=== PATIENT | female | born 1970 | race Caucasian/White ===

== ENCOUNTER 2024-10-22 14:42 | Inpatient (IN) | payer BC, SELFPAY ==
[2024-10-22] VITALS (28 sets, daily range): BP systolic 105–137; BP diastolic 70–101; BMI 30.3; BMI 29.2
--- NOTE | 2024-10-22 14:06 | CON.NEURO ---
Neuro Assessment/Plan
Assessment
Head CT imgs rev'd, no bleed
CTA head/neck imgs rev'd, normal
stroke, NIHSS 3 treated with TNK
Plan
Admit to MICU for 24 hours of frequent neurochecks.�
neurochecks q1, Frequent vital signs Q15min x 2hrs, then Q30min x 6hrs, then Q1H x 16hrs until stable from the start of TNK.�
�tele, accuchecks/ISS. Repeat Head CT in 24 hours
Blood pressure goals: <180/105 and MAP 80-100� in the acute period.� If BP elevated for 2 readings, preferred agents include IV labetalol or nicardipine.� Vasopressors as necessary to maintain MAP and CPP.�
Glucose goals: Maintain euglycemia using sliding scale insulin. If glucose >180 for two consecutive readings, please use MICU insulin protocol.�
Temperature goals: maintain normothermia�
Diagnostic tests: MRI brain without contrast, ECHO with bubble.�
Consults: PT/OT/FRUIT PEELER/PMR/CM/SW/bariatric coordinator
Avoid: antiplatelets, antithrombolytics, and puncture of non-compressible sites x24 hours if possible,
Consultation
Order
Date of Consultation: 10/22/24
Requesting Provider: Olvin Rueda
Reason for Consult: Stroke Alert
Subjective/Objective
Subjective Data
Date of Service: October 22, 2024
From ED notes:
Patient is a 54-year-old woman with history of migraines, postconcussive syndrome, hypothyroidism presenting to the emergency department with vision changes and numbness tingling. She was made a stroke alert on arrival. Patient's last known normal
was 12 PM. She was stating that she was sitting working. She then lost vision from her right side of her right eye. She then developed numbness tingling to her right arm and right leg. She did have balance problems. She also felt as if her
mouth went numb. She denies any migraine. No hearing changes. No trauma. Nothing stressful occurred prior to the symptoms.
patient reports having had similar symptoms previously after a concussion, which resolved after a few days
Objective Data
Vital Signs
Temp Pulse Resp BP Pulse Ox
36.7 C 86 16 136/88 98
10/22/24 13:46 10/22/24 13:46 10/22/24 13:46 10/22/24 13:46 10/22/24 13:46
Patient Allergies
Pork/Porcine Containing Products Allergy (Verified 10/22/24 13:48)
digestive problems
CVA Assessment
Onset of Stroke Symptoms
Onset of symptoms known: Yes
Date of onset of symptoms: 10/22/24
Time of onset of symptoms: 12:00
NIH Stroke Score
Level of Consciousness: 0 - Alert
LOC Questions: 0-Answers both correctly
LOC Commands: 0-Performs both correctly
Best Horizontal Gaze: 0-Normal
Visual Haji: 2=Full hemianopia
Facial Palsy: 0=Normal, symmetrical
Motor - Right Arm: 0=No drift 10 seconds
Motor - Left Arm: 0=No drift 10 seconds
Motor - Right Le-No drift 5 seconds
Motor - Left Le-No drift 5 seconds
Limb Ataxia: 0-Absent
Sensation: 1-Mild loss
Best Language: 0-No aphasia
Dysarthria: 0-Normal
Extinction and Inattention: 0-No abnormality
Total Score:: 3
Physical Exam
-
AAOx3, speech clear, language intact
VF: right eye with right hemianopsia; left eye intact
face symmetric
full strength b/l UE/LE, right pronator drift
decreased pin RUE/RLE
Medications
-
Home Medications
�Medication �Instructions �Recorded
Calcium Citrate 1 tab PO DAILY 05/18/20
cholecalciferol (vitamin D3) 25 1,000 units PO DAILY 05/18/20
mcg (1,000 unit) tablet
coenzyme Q10 200 mg capsule 600 mg PO DAILY 05/18/20
cyanocobalamin (vitamin B-12) 1,000 mcg PO DAILY 05/18/20
1,000 mcg tablet
duloxetine 60 mg capsule,delayed 120 mg PO DAILY 05/18/20
release
feverfew 380 mg capsule 380 mg PO DAILY 05/18/20
hydrochlorothiazide 12.5 mg tablet 37.5 mg PO DAILY 05/18/20
magnesium 200 mg tablet 400 mg PO DAILY 05/18/20
therapeutic multivitamin 1 tab PO DAILY 05/18/20
levothyroxine 112 mcg tablet 112 mcg PO DAILY 10/22/24
(Synthroid)
--- NOTE | 2024-10-22 14:07 | ED.CVA ---
History of Present Illness
General
Chief Complaint: CVA/TIA Symptoms
Time Seen by Provider: 10/22/24 14:00
Onset of Stroke Symptoms
Onset of symptoms known: Yes
Date of onset of symptoms: 10/22/24
Time of onset of symptoms: 12:00
History of Present Illness
History of Present Illness:
Patient is a 54-year-old woman with history of migraines, postconcussive syndrome, hypothyroidism presenting to the emergency department with vision changes and numbness tingling. She was made a stroke alert on arrival. Patient's last known normal
was 12 PM. She was stating that she was sitting working. She then lost vision from her right side of her right eye. She then developed numbness tingling to her right arm and right leg. She did have balance problems. She also felt as if her
mouth went numb. She denies any migraine. No hearing changes. No trauma. Nothing stressful occurred prior to the symptoms.
Past History
Past History
ED Past Medical History: Hypothyroidism
Social History
Tobacco: Non-smoker
Alcohol: None
Phy Exam
Physical Exam
Physical Exam:
GENERAL: in no acute distress
HEENT: normocephalic, extraocular movements intact, moist oral mucosa
NECK: normal inspection
RESPIRATORY: no respiratory distress, clear to auscultation bilaterally
CARDIOVASCULAR: regular rate and rhythm
ABDOMEN/: soft, non-distended, non-tender to palpation, no rebound or guarding
EXTREMITIES: non-tender, no edema/swelling
NEUROLOGIC: NIH 3: right side with right-sided visual field cut, decrease sensation to the right arm/right leg, right upper extremity strength 5/5, left upper extremity strength 5/5, right lower extremity strength 5/5, left lower extremity strength
5/5, normal sensation to light touch, normal [id number] and [id number], gait not tested formally
Scores
NIH Stroke Score
Level of Consciousness: 0 - Alert
LOC Questions: 0-Answers both correctly
LOC Commands: 0-Performs both correctly
Best Horizontal Gaze: 0-Normal
Visual Haji: 2=Full hemianopia
Facial Palsy: 0=Normal, symmetrical
Motor - Right Arm: 0=No drift 10 seconds
Motor - Left Arm: 0=No drift 10 seconds
Motor - Right Le-No drift 5 seconds
Motor - Left Le-No drift 5 seconds
Limb Ataxia: 0-Absent
Sensation: 1-Mild loss
Best Language: 0-No aphasia
Dysarthria: 0-Normal
Extinction and Inattention: 0-No abnormality
Total Score:: 3
Course
Orders/Labs/Results
Orders:
Orders
10/22/24 13:57
Electrocardiogram (*1) Urgent
Reason for Study: Other
Other Reason for Exam: Possible Stroke
CT HEAD STROKE ALERT W/o Cont Urgent
Comment:
Reason For Exam: stroke alert
Bedside Glucose- Treatment ONCE
Cardiac Monitoring- Treatment ONCE
EKG- Treatment ONCE
IV Insert/Care/Rem.- Treatment PRN
Complete Blood Count/With Diff Urgent
Comprehensive Metabolic Panel Urgent
PTT Urgent
Prothrombin Time Urgent
Troponin I Urgent
Vital Signs As Directed
Frequency: Other
Weight As Directed
Frequency: Once
Comment: ZERO STRETCHER SCALE FOR ACCURATE WEIGHT
O2 Therapy [RESP] Urgent
Titrate/Wean O2 to maintain O2 sat greater than (%): 93
Special Instructions: MAINTAIN CONTINUOUS O2 SATS > OR = 93%
10/22/24 13:58
CT HEAD/NECK ANG STROKE ALERT Urgent
Comment:
Reason For Exam: right peripheral loss and right sided weakness
10/22/24 14:08
Tenecteplase [Tnkase] 21 mg Syringe [Syringe Non-Pump] 0 ml IV NOW
Provider explained risk/benefits to patient &/or caregiver?: Yes
Blood pressure: 136/88
Vital Signs
Initial and Last Documented VS:
Initial Vital Signs
Temp Pulse Resp BP Pulse Ox
98.0 F 86 16 136/88 98
10/22/24 13:46 10/22/24 13:46 10/22/24 13:46 10/22/24 13:46 10/22/24 13:46
Last Documented Vital Signs
Temp Pulse Resp BP Pulse Ox
98.0 F 86 16 136/88 98
10/22/24 13:46 10/22/24 13:46 10/22/24 13:46 10/22/24 13:46 10/22/24 13:46
MDM/Problems Addressed
Differential Diagnosis Includes:
Patient is a 54-year-old woman presenting to the emergency department as a stroke alert. Vitals unremarkable exam does show right eye with right sided visual field cuts, decree sensation to the right arm. NIH of 3. Concern for acute CVA. Patient
was immediately taken over to CT scan for CT head and angio. CT scan of the head per my interpretation with no obvious hemorrhage or large occlusion. Received message from radiology with no acute findings. Discussed with neurology. Will proceed
with FRANCHESCA Bermudez. They did consent her. Patient will need ICU admission.
*Critical Care Note
Total Time (30-74mins, 75-104mins- exclusive of procedures): 31
comment:
Critical care statement: A total of 31 minutes of critical care time was provided for this patient. This includes management of unstable vital signs, evaluation of the patient at bedside, reviewing the patient's pertinent medical records, ordering
and reviewing studies, arranging urgent treatment with development of a management plan, evaluating patient's response to treatment, frequent reassessment, and discussion with consultants. This time was separate from time utilized to perform the
aforementioned documented procedures.
ED Attending Note
-
Portions of this chart may have been created with voice recognition software.� Occasional wrong word or��sound alike� substitutions may have occurred due to the inherent limitations of voice recognition software.
Discharge Plan
Departure
Patient Disposition: Admit
Date of Disposition: 10/22/24
Time of Disposition: 14:17
Presentation/result/management discussed w/ accepting MD/DO: Hospitalist
Discharge Problem:
Stroke
Prescriptions:
No Action
duloxetine 60 MG capsule,delayed release(DR/EC)
120 mg PO DAILY
hydrochlorothiazide 12.5 MG tablet
37.5 mg PO DAILY
cyanocobalamin (vitamin B-12) 1,000 mcg Tablet
1,000 mcg PO DAILY
Theragen Tablet
1 tab PO DAILY
feverfew 380 MG capsule
380 mg PO DAILY
magnesium 200 MG tablet
400 mg PO DAILY
coenzyme Q10 200 MG capsule
600 mg PO DAILY
calcium citrate 250 mg calcium Tablet
250 mg PO DAILY
cholecalciferol (vitamin D3) 1,000 UNITS tablet
1,000 units PO DAILY
levothyroxine [Synthroid] 112 mcg Tablet
112 mcg PO DAILY
Interventions
Interventions:
*Risk Screen - Suicide Last Done: 10/22/24 13:46
*General Assessment Last Done: 10/22/24 14:06
*Neglect/Abuse Screening Last Done: 10/22/24 13:46
*ED- Fall Risk Assessment Last Done: 10/22/24 14:06
*ED COVID-19 Vaccine History Last Done: 10/22/24 14:06
ED- Pulmonary Assessment Last Done: 10/22/24 13:55
ED- Neurological Assessment Last Done: 10/22/24 13:59
ED- Cardiac Assessment Last Done: 10/22/24 14:06
Discharge Date and Time
Print Language: IRAQI
[2024-10-22] MEDS: TNKASE 4.2 MG IV (14:17)
--- NOTE | 2024-10-22 14:20 | HPS.HSE ---
Addendum entered and electronically signed by Betsey Murphy MD 10/22/24 15:10:
pt seen and examined independently--agree with C[employer] TESTER note
GENERAL: well developed, well nourished, female in no apparent distress
HEENT: NC/AT
HEART: regular rate and rhythm, +S1, +S2
LUNGS : clear to auscultation bilaterally
ABDOM: soft, nontender, nondistended, + bowel sounds
EXT: no cyanosis, clubbing, or edema
NEUROLOGIC: grossly intact--CN 2-12 intact, sensation intact--strength 5/5 x 4 ext
Acute CVA--Sudden onset right-sided visual deficits and right arm and leg numbness --s/p TNK--admit to ICU--head CT and CTA without acute issues, EKG NSR--head of research & insights/neuro consult--will need ECHO, brain MRI, PT/OT/speech--permissive HTN--hold
HCTZ--check lipids
hypokalemia likely from HCTZ--replete
transaminitis likely from Cymbalta--trend LFT--consider abdominal US if no resolution
depression-duloxetine continued
calcium wasting syndrome--hold HCTZ for now--cont calcium and vit D supps
Hypothyroidism--levothyroxine continued
DVT Prophylaxis--scd
CODE status--full code
Original Note:
Family Physician
-
Family Physician:
Chief Complaint
-
right sided weakness
History of Present Illness
54-year-old woman with history of migraines, postconcussive syndrome, hypothyroidism presenting to the emergency department with vision changes and numbness tingling and weakness of right side. she was from working from home on the computer. She
then lost vision from her right side of her right eye. She then developed numbness tingling to her right arm and right leg. she was able to come downstairs but She did have balance problems. she is complaining of head pressure. denied fever,
chills, congestion, cough. denied chest pain, sob. denied abdominal pain,n,v,d.denied dysuria or hematuria.
CT with no acute findings. admitting for further management. patient received TNK in ER.
Medical History
Past Medical History
Past Medical History: Reports Other
Additional Past Medical History:
Postconcussive syndrome
Hypothyroidism
Past Surgical History: Reports Other
Additional Past Surgical History:
Lap cholecystectomy and umbilical hernia repair
Social History
Tobacco: Non-smoker
Alcohol: None
Drug: None
Personal:
Living: With Family
Employment: Employed
Family History
Family History: Not pertinent
Allergies / Home Medications
Allergies reflects when Allergies were last updated in [facility].
Home Medications with original date entered in [facility]
Allergy/Medication List:
Allergies
Allergy/AdvReac Type Severity Reaction Status Date / Time
Pork/Porcine Containing Allergy digestive Verified 10/22/24 13:48
Products problems
Home Medications
calcium citrate 250 mg PO DAILY 05/18/20
cholecalciferol (vitamin D3) 25 mcg (1,000 unit) tablet 1,000 units PO DAILY 05/18/20
coenzyme Q10 200 mg capsule 600 mg PO DAILY 05/18/20
cyanocobalamin (vitamin B-12) 1,000 mcg tablet 1,000 mcg PO DAILY 05/18/20
duloxetine 60 mg capsule,delayed release 120 mg PO DAILY 05/18/20
feverfew 380 mg capsule 380 mg PO DAILY 05/18/20
hydrochlorothiazide 12.5 mg tablet 37.5 mg PO DAILY 05/18/20
magnesium 200 mg tablet 400 mg PO DAILY 05/18/20
therapeutic multivitamin 1 tab PO DAILY 05/18/20
levothyroxine 112 mcg tablet (Synthroid) 112 mcg PO DAILY 10/22/24
Review of Systems
-
Constitutional: Reports No Symptoms
EENT: Reports No Symptoms
Respiratory: Reports No Symptoms
Cardiac: Reports No Symptoms
Abdomen/GI: Reports No Symptoms
: Reports No Symptoms
Musculoskeletal: Reports No Symptoms
Skin: Reports No Symptoms
Neurological: Reports Headache, Weakness and Numbness
Endocrine: Reports No Symptoms
Hematologic/Lymphatic: Reports No Symptoms
Psych: Reports No Symptoms
Physical Exam
Vital Signs
Vital Signs
Temp Pulse Resp BP Pulse Ox
98.0 F 86 16 136/88 98
10/22/24 13:46 10/22/24 13:46 10/22/24 13:46 10/22/24 13:46 10/22/24 13:46
Physical Exam
General: Well Developed, Well Nourished and No Apparent Distress
HEENT: NormoCephalic, Moist mucous membranes and Atraumatic
Respiratory: Clear
Cardiac: S1/S2 and Regular Rhythm; No Murmur or Rub
GI: Soft, Non Tender, Non Distended and Normal Bowel Sounds; No Organomegaly
Rectal: Deferred by Provider
Musculoskeletal: No Clubbing, No Cyanosis and No Edema
Skin: No Rash
Neuro: Nonfocal/grossly intact and Other (decreased sensation to right side, right sided weakness. )
Data Reviewed
-
CT Scan: Report Reviewed by me
Lab Data: Labs Reviewed by me
Impression/Plan
-
#Sudden onset right-sided visual deficits and right arm and leg numbness Rule out acute CVA post TNK
-Head CT without acute findings
-EKG with normal sinus rhythm
-Head and neck CT pending
-head MRI
-obtain a1c, lipid profile
-PT/OT
-neurology consulted
#hypokalemia likely from HCTZ
-k dur in ER
-bmp in am
#transaminitis likely from Cymbalta
-trend LFT
-denied abdominal pain
-ctm
#depression
-duloxetine continued
#HTN
-hold HCTZ, allow permissive HTn
#Hypothyroidism
-levothyroxine continued
#DVT Prophylaxis
-scd
#CODE status
-full code
[2024-10-22 14:23] LABS: % Basophils 1.4 % (0-2); % Immature Granulocytes 0.1 % (0-0.5); % Lymphocytes 21.3 % (20.5-51.1); % Monocytes 7.4 % (1.7-9.3); % Neutrophils 64.8 % (42.2-75.2); Absolute Basophils 0.1 10^3/uL (0-0.2); Absolute Eosinophils 0.4 10^3/uL (0-0.7); Absolute Lymphocytes 1.8 10^3/uL (1.2-3.4); Absolute Monocytes 0.6 10^3/uL (0.1-0.6); Absolute Neutrophils 5.6 10^3/uL (1.4-6.5); Hemoglobin 15.8 g/dL (12.0-16.0); Mean Corp Hgb Conc. 35.9 g/dL (33.0-37.0); Mean Corpuscular Hgb 31.5 pg (27.0-31.0); Mean Corpuscular Volume 87.6 fL (81.0-99.0); Mean Platelet Volume 8.9 fL (7.4-10.4); Nucleated Red Blood Cells % 0 %; Platelet Count 413 10^3/uL (130-400); Red Blood Cell Count 5.02 10^6/uL (4.20-5.40); Red Cell Dist. Width 11.8 % (11.5-14.5); White Blood Cell Count 8.6 10^3/uL (4.8-10.8)
[2024-10-22 14:34] LABS: INR 0.96; PT 13.1 Sec (11.4-14.6)
[2024-10-22 14:35] LABS: APTT 26.3 Sec (23.4-35.0)
[2024-10-22 14:37] LABS: ALT (SGPT) 143 U/L (0-35); AST (SGOT) 60 U/L (14-36); Alkaline Phosphatase 145 U/L (38-126); Blood Urea Nitrogen 20 mg/dl (7-17); Calcium 9.9 mg/dl (8.4-10.2); Carbon Dioxide 35 mmol/L (22-30); Chloride 94 mmol/L (98-107); Estimated Creatinine Clearance 116 ml/min; Glucose 93 mg/dl (70-99); Potassium 3.4 mmol/L (3.5-5.1); Sodium 137 mmol/L (135-145); Total Bilirubin 0.7 mg/dl (0.2-1.3); Total Protein 7.5 g/dl (6.3-8.2); eGFR > 60.00
[2024-10-22 14:53] LABS: Troponin I < 0.012 ng/ml
--- NOTE | 2024-10-22 15:03 | CON.INTV ---
Consultation
Consultation Request
Date/Time Consultation Requested: 3 PM
Date/Time Consultation Performed: 3:15 PM
Medical History
-
Chief Complaint: Right-sided weakness, vision loss
History of Present Illness:
Patient is a 54-year-old female with past medical history of migraines, postconcussive syndrome, hypothyroidism who presents to [facility] after right sided weakness and tingling and vision loss. Patient states that she was at home working
on the computer when she started to have right sided vision loss and numbness and tingling. She was able to get herself down the stairs and called her . She has a history of postconcussive syndrome and had similar symptoms 12 years ago that
resolved spontaneously. She has a known visual deficit between 4 and 5:00 on the right side. At the hospital, CT in ED was negative for acute findings. Patient was given TNK in the ER. EKG showed normal sinus rhythm. Patient states that her
sensation has almost come back to normal and her vision is 'coming back to baseline slowly.'
She reports no nausea, vomiting, chest pain, shortness of breath, abdominal pain. She has some numbness on the right side of the face.
Past medical history�migraines, postconcussive syndrome, hypothyroidism
PSHx�lap massimo and umbilical hernia repair
Social History
Tobacco: Non-smoker
Alcohol: None
Drug: None
Personal:
Living: With Family
Employment: Employed
Allergies / Home Medications
Allergies
Allergy/AdvReac Type Severity Reaction Status Date / Time
Pork/Porcine Containing Allergy digestive Verified 10/22/24 13:48
Products problems
Home Medications
�Medication �Instructions �Recorded �Confirmed �Last Taken �Type
calcium citrate 250 mg PO DAILY 05/18/20 10/22/24 05/18/20 18:00 History
cholecalciferol (vitamin D3) 25 1,000 units PO DAILY 05/18/20 10/22/24 05/18/20 18:00 History
mcg (1,000 unit) tablet
coenzyme Q10 200 mg capsule 600 mg PO DAILY 05/18/20 10/22/24 05/19/20 05:00 History
cyanocobalamin (vitamin B-12) 1,000 mcg PO DAILY 05/18/20 10/22/24 05/19/20 05:00 History
1,000 mcg tablet
duloxetine 60 mg capsule,delayed 120 mg PO DAILY 05/18/20 10/22/24 05/19/20 05:00 History
release
feverfew 380 mg capsule 380 mg PO DAILY 05/18/20 10/22/24 05/19/20 05:00 History
hydrochlorothiazide 12.5 mg tablet 37.5 mg PO DAILY 05/18/20 10/22/24 05/19/20 05:00 History
magnesium 200 mg tablet 400 mg PO DAILY 05/18/20 10/22/24 05/19/20 05:00 History
therapeutic multivitamin 1 tab PO DAILY 05/18/20 10/22/24 05/18/20 18:00 History
levothyroxine 112 mcg tablet 112 mcg PO DAILY 10/22/24 10/22/24 Unknown History
(Synthroid)
Review of Systems
-
History Source: Patient
Respiratory: No Symptoms
Cardiac: No Symptoms
Abdomen/GI: No Symptoms
Musculoskeletal: No Symptoms
Neuro: Numbness
Vitals / Labs / Diagnostic Testing
Vital Signs
Temp Pulse Resp BP Pulse Ox
98.0 F 76 18 128/81 97
10/22/24 13:46 10/22/24 14:47 10/22/24 14:47 10/22/24 14:47 10/22/24 14:45
Lab Data
10/22/24 14:04
10/22/24 14:04
Laboratory Results
10/22/24
14:04
PT 13.1
INR 0.96
APTT 26.3
Diagnostic Testing:
Physical Exam
-
HEENT: Normocephalic, Anicteric and Moist Mucous Membranes
Cardiovascular: S1/S2 and Regular Rhythm
Respiratory: Clear
GI: Soft
Neurology: AO x 3
Skin: Warm and Dry
Exam:
Neuro�cranial nerves I through XII intact
Assessment
-
54-year-old female with past medical history of hypothyroidism, migraines, postconcussive syndrome being evaluated for potential acute CVA post TNK administration on 10/22.
Past 24 hours
� Admitted to ICU on 10/22.
� Patient given TNK at 1408. CT head and CTA negative.
� WBC 8.6, hemoglobin 15.8, platelets 413
� Sodium 137, potassium 3.4, creatinine 0.6, BUN 20
�N.p.o. status
#Acute CVA
Admit to ICU
Status post TNK administered at 1408 on 10/22
CT head and CTA negative
EKG shows normal sinus rhythm
Echo pending
Brain MRI pending
PT/OT/speech pending
Hold HCTZ
Continue neurochecks every hour
Neurology on board, input appreciated
#Postconcussive syndrome
Patient on Cymbalta for side effects from gabapentin
Continue Cymbalta
#Hypokalemia
Hold HCTZ
Replete as needed
Follow BMP
#Transaminitis
Consider abdominal ultrasound if remains elevated
#Calcium wasting syndrome
Hold HCTZ
Continue calcium and vitamin D supplementation as needed
#Hypothyroidism
Continue levothyroxine
DVT prophylaxis�SCDs
Full code
Data Reviewed
-
CT Scan: Report reviewed by me and Discussed with Physician
[2024-10-22 15:22] LABS: Glucose - Point of Care 90 mg/dl (70-99)
[2024-10-22] MEDS: KCL ELIXIR 40 MEQ PO (15:52)
--- NOTE | 2024-10-22 16:23 | PTOTSP ---
Speech Therapy Evaluation:
Pt presents with oropharyngeal swallow that is WFL at bedside. No overt s/sx of aspiration. Pt passed 3oz swallow screen. CXR with no acute process. WBC WNL. Pt with acute risk of dysphagia given concern for CVA, however imaging negative thus far.
Recommend:
1. Initiate IDDSI Level 7 (regular) and thin liquid diet
2. Medications as tolerated
3. General aspiration precautions
4. VIDEOGAME DESIGNER to s/o - please reconsult if indicated
--- NOTE | 2024-10-22 16:25 | PTCARENOTE ---
arrivevd from ED, neuro handoff bedside, see NIH/Thrombolytic intervention for times. Pleasantly interactive, family bedside, CHG cloth bath, settled in room. VS noted stable.
--- NOTE | 2024-10-22 17:09 | PTCARENOTE ---
echo done, watching TV. Stroke book given. Sensations 'approaching almost normal' face/arms/legs. Notes vision greatly improving R visual grubbs, with clarity and breadth.
--- NOTE | 2024-10-22 20:00 | PTCARENOTE ---
Patient received in bed, NIH 1. Oriented x3, equal strength noted throughout. Patient has previous visual field deficit in right eyes. Peripheral vision has improved and states is back to her baseline. Patient ambulated to bathroom with
assistance, gait is steady. NSR on monitor, normotensive. No edema. Knee high SCDS maintained. Lungs clear, pulse ox 97% on room air. Ate 100% dinner. Voiding yellow urine. Skin intact. #20 g in LAC flushed and patent. Plan of care
discussed, call ann within reach
--- NOTE | 2024-10-22 23:30 | PTCARENOTE ---
Patient reassessed, neuro checks unchanged. Awakens easily. No changes in assessment
[2024-10-23] VITALS (28 sets, daily range): BP systolic 111–149; BP diastolic 76–96; BMI 29.1
--- NOTE | 2024-10-23 04:36 | PTCARENOTE ---
Patient reassessed, awakens easily, offers no complaints. Ambulated with assistance. Labs sent
[2024-10-23 04:56] LABS: Venous Blood Gas B.E. 5.5 mmol/L (-4 to +4); Venous Blood Gas HCO3 32.1 mmol/L (22-27); Venous Blood Gas O2 Sat % 85.5 %; Venous Blood Gas pCO2 53 mmHg (35-48); Venous Blood Gas pH 7.39 (7.32-7.43); Venous Blood Gas pO2 52 mmHg (30-50)
[2024-10-23 04:58] LABS: Venous Blood Gas O2 Therapy 21%
[2024-10-23 05:06] LABS: Hematocrit 41.8 % (37.0-47.0); Hemoglobin 14.8 g/dL (12.0-16.0); Mean Corp Hgb Conc. 35.4 g/dL (33.0-37.0); Mean Corpuscular Hgb 31.6 pg (27.0-31.0); Mean Corpuscular Volume 89.1 fL (81.0-99.0); Mean Platelet Volume 8.8 fL (7.4-10.4); Platelet Count 330 10^3/uL (130-400); Red Blood Cell Count 4.69 10^6/uL (4.20-5.40); Red Cell Dist. Width 11.8 % (11.5-14.5); White Blood Cell Count 7.6 10^3/uL (4.8-10.8)
[2024-10-23 05:19] LABS: INR 0.94; PT 12.9 Sec (11.4-14.6)
[2024-10-23 05:20] LABS: APTT 27.1 Sec (23.4-35.0)
[2024-10-23 05:24] LABS: ALT (SGPT) 140 U/L (0-35); AST (SGOT) 68 U/L (14-36); Albumin 4.4 g/dl (3.5-5.0); Alkaline Phosphatase 141 U/L (38-126); Blood Urea Nitrogen 19 mg/dl (7-17); Calcium 9.6 mg/dl (8.4-10.2); Carbon Dioxide 31 mmol/L (22-30); Chloride 99 mmol/L (98-107); Estimated Creatinine Clearance 120 ml/min; Glucose 100 mg/dl (70-99); HDL Cholesterol 56 mg/dl; LDL Cholesterol, Calculated 187 mg/dl; Potassium 3.5 mmol/L (3.5-5.1); Sodium 138 mmol/L (135-145); Total Bilirubin 0.7 mg/dl (0.2-1.3); Total Cholesterol 290 mg/dl (50-199); Total Protein 6.6 g/dl (6.3-8.2); Triglyceride 239 mg/dl (10-149); Very Low Density Lipoprotein 47 mg/dl (0-30); eGFR > 60.00
[2024-10-23] MEDS: SYNTHROID 112 MCG PO (05:33)
--- NOTE | 2024-10-23 08:10 | W.PN.HOSP.TC ---
Today's Communication/Plan
-
await MRI brain
PT/OT
start crestor 40 mg
likely will need asa/plavix x 21 days followed by ASA alone
Assessment / Plan
Assessment / Plan
pt is a 54 year old female
Acute CVA--Sudden onset right-sided visual deficits and right arm and leg numbness --s/p TNK---head CT and CTA without acute issues, ECHO WNL--EKG NSR--apprec marketing analytics analyst/neuro --will need brain MRI, PT/OT/speech--permissive HTN--can restart HCTZ--
lipids show Tchol 290, LDL 187, trig 239--start crestor 40mg qPM watch LFTs
hypokalemia likely from HCTZ--replete
transaminitis-- likely from duloxetine (Cymbalta)--trend LFT--consider abdominal US (can be done as outpt)--with elevated lipids, consideration for fatty liver
depression--duloxetine continued
calcium wasting syndrome--hold HCTZ for now--cont calcium and vit D supps
Hypothyroidism--levothyroxine continued
DVT Prophylaxis--scd
CODE status--full code
anticipate home if brain MRI normal and cleared by PT/OT
Anticipated Discharge: Today
Subjective/Interval History
-
Date of Service: October 23, 2024
pt back to baseline
Objective Data
-
Labs:
Laboratory Results
10/23/24
04:47
WBC 7.6
Hgb 14.8
Hct 41.8
Plt Count 330 D
PT 12.9
INR 0.94
APTT 27.1
Sodium 138
Potassium 3.5
Chloride 99
Carbon Dioxide 31 H
BUN 19 H
Creatinine 0.6
Glucose 100 H
Calcium 9.6
Total Bilirubin 0.7
AST 68 H
ALT 140 H
Alkaline Phosphatase 141 H
Vital Signs:
max temp for 24 hours
10/22/24
15:18
Temp 98.3 F
Vital Signs
Temp Pulse Resp BP Pulse Ox
98.5 F 92 13 131/86 100
10/23/24 07:23 10/23/24 08:00 10/23/24 08:00 10/23/24 08:00 10/23/24 08:00
I&O
10/22/24 10/23/24 10/24/24
06:59 06:59 06:59
Intake Total 480 / 480
Output Total 1550 / 1550
Balance -1070 / -1070
Review of Systems
-
All other systems: Reviewed and negative
Physical Exam
-
General: Well Developed, Well Nourished and No Apparent Distress
HEENT: Normocephalic and Atraumatic
Respiratory: Clear to Auscultation; Negative Wheezes or Rhonchi
Cardiac: Regular Rhythm and S1/S2; Negative Murmur
GI: Soft, Nontender, Nondistended and Normal Bowel Sounds
Musculoskeletal: No Clubbing, No Cyanosis and No Edema
Neuro: Awake and Alert
Psych: Calm
--- NOTE | 2024-10-23 08:27 | W.PN.INTV ---
Today's Communication / Plan
Recommendations
q1hr neurochecks
NIHSS q shift
Permissive hypertension
Follow-up brain MRI today
Trend LFTs
When able, start high intensity statin for goal LDL <70 assuming that infarct is seen on brain MRI
If brain MRI shows infarct, defer antiplatelet therapy to neurology
Continue ICU level of care with q1hr neurochecks. Once MRI brain is done, can possibly downgrade to telemetry versus discharge home if okay with neurology + hospitalist. Once downgraded or discharge then we will sign off at that time.
Assessment
-
Impression:
#Unilateral right-sided peripheral vision loss with numbness/tingling of right side of face with right-sided hemiparesis concerning for left-sided CVA s/p TNK
#Thrombocytosis likely reactive due to above - platelet count now normalized
#Hypokalemia
#Hypochloremia - resolved
#Metabolic alkalosis due to stable chronic hypercapnia
#Transaminitis with elevated AST, ALT and ALP
Plan:
- Continue q1hr neurochecks + NIHSS q shift
- Strict BP control with goal <180/105 with permissive HTN; maintain MAP>65
- Seen by SPEECH COACH on 10/22 and cleared for regular diet with thin liquids
- A1c: 5.4 and LDL 187 --> if stroke is confirmed on MRI then would recommend keeping LDL <70 with high intensity statin if LFTs are stable, preferably improving
- Neurology on board and recs appreciated
- MRI brain today 24 hrs s/p TNK
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
- Maintain euglycemia with goal BG 140-180
- Maintain normothermia
- Echo checked on 10/22/2024 shows mild MR with preserved biventricular size and function with no evidence of interatrial septal shunting
- PT/OT
- Avoid antiplatelets/anticoagulants until at least >24 hours s/p TNK
- Maintain SpO2 >92-94%
- Aspiration precautions
- Replete electrolytes with K>4, Mg>2
- Trend LFTs
- VBG shows stable chronic hypercapnia with pH 7.39, pCO2 53
- Trend H/H and transfuse if needed to keep Hb>7g/dL; keep plt>100k
- prn nebulized bronchodilators - not currently bronchospastic
- Incentive spirometer encouraged 10x per hour for at least 4 hrs a day
- DVT ppx: SCDs for now until MRI brain is done and shows no evidence of ICH
Continue ICU level of care with q1hr neurochecks. Once MRI brain is done, can possibly downgrade to telemetry versus discharge home if okay with neurology + hospitalist. Once downgraded or discharge then we will sign off at that time.
Critical care statement: A total of 36 minutes of critical care time was provided for this patient today. This includes management of unstable vital signs, evaluation of the patient at bedside, reviewing the patient's pertinent medical records
including radiographs, microbiology, laboratory evaluations, and discussion with primary team, consultants, pharmacy, nutrition, physical therapy, case management, charge nurse, critical care nursing, and respiratory therapy.
Subjective Dataa
Subjective Data
Date of Service:
Date of Service: October 23, 2024
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
Subjective:
Patient seen and evaluated today at bedside. All of her symptoms yesterday have now resolved. Currently saturating 99% on room air, BP 123/86 and heart rate 84. She feels well, denies headache, nausea, shortness of breath, chest pain, fevers or
chills.
Review of Systems
General: Other (Negative unless mentioned above)
Objective Data
Data Reviewed
Vital Signs / I&O / Oxygen:
Vital Signs
Temp Pulse Resp BP Pulse Ox
98.5 F 83 14 116/85 97
10/23/24 07:23 10/23/24 09:00 10/23/24 09:00 10/23/24 09:00 10/23/24 09:00
Intake and Output
10/22/24 10/23/24 10/24/24
06:59 06:59 06:59
Intake Total 480 / 480
Output Total 1550 / 1550
Balance -1070 / -1070
SaO2 97
Physical Exam
General: Respiratory Distress (negative), Comfortable, Chills (negative) and Sweats (negative)
HEENT: Normocephalic and Anicteric
Cardiovascular: S1-S2, Rub (negative) and Peripheral Edema (negative)
Respiratory: Wheeze (negative), Crackles (Right base), Rhonchi (negative), Non-Labored Respirations and Stridor (negative)
GI: Soft, Non Distended, Non Tender and Normal Bowel Sounds
Neurology: AO x 3, No Motor Deficits (Medical Insurance Clerk strength is 5/5 on left hand, 4/5 on right hand; normal dorsi/plantarflexion bilaterally: 5/5), Tremors (negative) and Other (Normal sensation to light touch in all 4 extremities and on face; able to
protrude tongue and intact lateral movement; able to shrug shoulders against resistance; able to keep eyes closed against resistance; normal smile with no nasolabial fold flattening; normal H test; pupils 3mm b/l and brisk)
Skin: Warm, Dry, Cyanosis (negative) and Jaundice (negative)
Labs/Micro/Reports
Lab Data
10/23/24 04:47
10/23/24 04:47
Laboratory Results
10/22/24 10/23/24
14:04 04:47
PT 13.1 12.9
INR 0.96 0.94
APTT 26.3 27.1
[2024-10-23] MEDS: VITAMIN B-12 1000 MCG PO (08:56)
[2024-10-23] MEDS: MAG-TAB SR 84 MG PO (08:56)
[2024-10-23] MEDS: CYMBALTA DELAYED RELEASE 120 MG PO (08:56)
[2024-10-23] MEDS: VITAMIN D3 (cholecalciferol) 25 MCG PO (08:56)
[2024-10-23] MEDS: OSCAL CAL 500 500 MG PO (08:56)
[2024-10-23 09:26] LABS: Glycohemoglobin (HgbA1c) 5.4 % (4.0-5.6)
[2024-10-23] MEDS: REFRESH EYE DROPS (PF) 1 DROPS OPHTH (10:06)
--- NOTE | 2024-10-23 10:37 | PTCARENOTE ---
Rec'd pt at 0700. NIHSS-1 for pre-existing peripheral visual loss in right eye-back to pt's baseline. MUELLER with equal strength, no numbness or tingling. Pt AAOx3. Monitor SR. Awaiting MRI for this afternoon.
--- NOTE | 2024-10-23 14:53 | W.PN.NEURO.1 ---
Today's Communication / Plan
-
ok to d/c home
21 days of DAPT
rosuvastatin 40
Neuro Assessment/Plan
Assessment
Head CT imgs rev'd, no bleed
CTA head/neck imgs rev'd, normal
MRI brain imgs reviewed, suspect stroke right occipital which does not match a right visual field deficiit, single image series 28 img 25. L frontal T2/Flair demyelinating lesion - patient aware of this from prior MRI
stroke, NIHSS 3 treated with TNK clinically made a full recovery
Plan
ok to d/c home
21 days of DAPT
rosuvastatin 40
Subjective/Objective
Subjective Data
Date of Service: October 23, 2024
Made a full recovery
Objective Data
Vital Signs
Temp Pulse Resp BP Pulse Ox
36.7 C 85 18 123/77 98
10/23/24 11:36 10/23/24 13:00 10/23/24 13:00 10/23/24 13:00 10/23/24 11:00
Lab Results
10/23/24 04:47
10/23/24 04:47
PT 12.9 Sec (11.4-14.6) 10/23/24 04:47
INR 0.94 10/23/24 04:47
APTT 27.1 Sec (23.4-35.0) 10/23/24 04:47
Sodium 138 mmol/L (135-145) 10/23/24 04:47
Potassium 3.5 mmol/L (3.5-5.1) 10/23/24 04:47
BUN 19 mg/dl (7-17) H 10/23/24 04:47
Glucose 100 mg/dl (70-99) H 10/23/24 04:47
Calcium 9.6 mg/dl (8.4-10.2) 10/23/24 04:47
LDL Cholesterol, Calc 187 mg/dl 10/23/24 04:47
Patient Allergies
Pork/Porcine Containing Products Allergy (Verified 10/22/24 13:48)
digestive problems
Physical Exam
-
AAOx3, speech clear, language intact
VFF, EOMI, face symmetric
full strength b/l UE/LE
sensation intact touch/pin
DTR normal/symmetric
--- NOTE | 2024-10-23 15:21 | CM ---
CM met with pt at bedside.
Pt resides with spouse and son (15) in a 2[address] with 2 ELLIOT. Prior to admission ind with amb/adl's using no AD/DME.
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
Confirmed PCP is Ray Rucker and pharmacy is [facility].
No HC or SNF hx.
PT signed off.
Discharge dispo home no needs. Spouse to transport.
--- NOTE | 2024-10-23 16:31 | PTCARENOTE ---
Addendum entered by Tati James RN 10/23/24 16:34:
correction-pt discharged at 1630
Original Note:
MRI completed. Discharge instructions received and reviewed with pt and . Pt discharged to home at approx 1430.
--- NOTE | 2024-10-24 16:10 | W.DCSUMMARY ---
Discharge Summary
Discharge Data
Date of Admission: 10/22/24
Date of Discharge: 10/23/24
-
Pending Results: No
Hospital Course
Primary care physician : Ray Rucker
Principal Discharge diagnosis : Acute stroke, hypokalemia, transaminitis
Chronic Discharge diagnosis : Depression, calcium wasting syndrome, hypothyroidism
Hospital Course : Patient was a 54-year-old female who has a history of postconcussive syndrome and migraines who presented with vision changes, numbness and tingling along with weakness of her right side. She was working at home from the computer.
She then lost vision in the right side of her right eye. She developed numbness and tingling to her right arm and leg along with her face. She was able to go downstairs but had balance problems. She was complaining of head pressure. CAT scan
done in the emergency department was without any acute findings. She was seen emergently as a stroke alert by neurology and TNK was given. Patient was admitted.
Problem #1: Acute stroke. After patient received TNK, she was admitted to the intensive care unit. Neurology and travel assistant were consulted. Patient had marked improvement in her symptoms. PT/OT/speech were consulted and patient is recommended
to have outpatient occupational therapy for vision assessment and driving assessment. MRI was done which shows no evidence for acute intracranial abnormality, however, neurology's reading shows a potential suspected stroke in the right occipital
lobe (which does not match her right visual field deficit). Nevertheless, patient did have complete recovery with TNK. Plan is to discharge home on 21 days of aspirin and Plavix followed by aspirin alone. Lipids were checked which showed total
cholesterol of 290, LDL of 187, triglycerides of 239. Patient was started on Crestor. Echocardiogram was done and was within normal limits. CAT scan of her head and CTA done in the emergency department were without acute issues
Problem #2: Hypokalemia. This was followed and repleted.
Problem #3: Transaminitis. AST was 68, ALT 140, alk phos 141, total bilirubin within normal limits. This may be related to her duloxetine as an outpatient. Now that Crestor has been added we will need to keep a closer eye on the LFTs.
Problem #4: All other medical issues. These include Depression, calcium wasting syndrome, hypothyroidism. These medical issues were stable during her hospitalization. Medications were continued as able.
Patient is stable for discharge home at this time. If there are any questions regarding this dictation or her hospital stay, please do not hesitate to call. Our office number is [phone].
Important imaging findings :
BRAIN MRI IMPRESSION: Susceptibility artifact and slight anatomic distortion in the anterior inferior midline frontal lobe, which corresponds to a small 2 mm metallic density within the anterior soft tissues on recent CT examination.
There is no evidence for acute intracranial abnormality.
Small focus of increased FLAIR signal within the deep white matter of the left frontal lobe
On sagittal images, posterior disc/osteophyte complex at C3-4 and C4-5 may result in slight compression of the anterior margin of the cervical spinal cord.
CTA HEAD AND NECK IMPRESSION:
CTA Head: No significant arterial stenosis. No evidence of aortic aneurysm or dissection.
CTA Neck: No significant arterial stenosis. No evidence of aortic dissection.
HEAD CT IMPRESSION:
No acute intracranial abnormality.
ECHOCARDIOGRAM CONCLUSIONS:
Normal left ventricular systolic function.
Left ventricular ejection fraction is 55-60%.
Mild mitral regurgitation.
No prior study available for comparison.
Discharge Plan
-
Patient Disposition: Home (Routine Discharge)
Discharge Diagnosis/Procedures: Acute stroke, hypokalemia, transaminitis, depression, calcium wasting syndrome, hypothyroidism
Condition: Good
Diet: Low Cholesterol
Activity: As tolerated
Driving Restrictions: No driving
Bathing Restrictions: None
Other Services: OT
Referrals:
Billy Scott MD [Active] - in one month
Ray Rucker MD [Family Provider] - in less than 1 week
Additional Discharge Medication Instructions: Take both aspirin and clopidogrel for 21 days followed by continuing aspirin alone
Prescriptions:
New
rosuvastatin 40 mg Tablet
40 mg PO QPM Qty: 30 0RF
acetaminophen 325 mg Tablet
650 mg PO Q4HPRN PRN (Reason: SHAFER, mild pain, or temp >100.4F) Qty: 0 0RF
clopidogrel 75 mg tablet
75 mg PO DAILY 21 Days Qty: 21 0RF
aspirin 81 mg tablet,chewable
81 mg PO DAILY Qty: 60 0RF
Continued
duloxetine 60 MG capsule,delayed release(DR/EC)
120 mg PO DAILY
hydrochlorothiazide 12.5 MG tablet
37.5 mg PO DAILY
cyanocobalamin (vitamin B-12) 1,000 mcg Tablet
1,000 mcg PO DAILY
therapeutic multivitamin Tablet
1 tab PO DAILY
feverfew 380 MG capsule
380 mg PO DAILY
magnesium 200 MG tablet
400 mg PO DAILY
coenzyme Q10 200 MG capsule
600 mg PO DAILY
calcium citrate 250 mg calcium Tablet
250 mg PO DAILY
cholecalciferol (vitamin D3) 1,000 UNITS tablet
1,000 units PO DAILY
levothyroxine [Synthroid] 112 mcg Tablet
112 mcg PO DAILY
Discharge Orders:
Discharge Patient (As Directed); Ordered 10/23/24
Ordered By: Betsey Murphy
Discharge Date and Time
Discharge Date/Time: 10/23/24 16:47
Print Language: SAMMARINESE
== END 2024-10-23 16:47 | disposition home or self-care (01) | DRG 62 ==
LOC: ICU 14:42
PROVIDERS: Registered Nurse; ADMITTING PHYSICIAN Internal Medicine; CONSULT PHYSICIAN Internal Medicine Critical Care Medicine; CONSULT PHYSICIAN Psychiatry & Neurology Clinical Neurophysiology; EMERGENCY PHYSICIAN Student in an Organized Health Care Education/Training Program; FAMILY PHYSICIAN Internal Medicine
PROC: 3E03317 Introduction of Other Thrombolytic into Peripheral Vein, Percutaneous Approach (ICD-10-PCS; 2024-10-22)
DX: I63.9 Cerebral infarction, unspecified (principal); E87.3 Alkalosis; G81.91 Hemiplegia, unspecified affecting right dominant side; H53.9 Unspecified visual disturbance; E03.9 Hypothyroidism, unspecified; R20.0 Anesthesia of skin; R20.2 Paresthesia of skin; E87.6 Hypokalemia; R74.01 Elevation of levels of liver transaminase levels; F32.A Depression, unspecified; F07.81 Postconcussional syndrome; G43.909 Migraine, unspecified, not intractable, without status migrainosus; E88.A Wasting disease (syndrome) due to underlying condition; I11.9 Hypertensive heart disease without heart failure; R26.9 Unspecified abnormalities of gait and mobility; H54.61 Unqualified visual loss, right eye, normal vision left eye; D75.839 Thrombocytosis, unspecified; E87.8 Other disorders of electrolyte and fluid balance, not elsewhere classified; Z79.890 Hormone replacement therapy; Z91.014 Allergy to mammalian meats
CPT/HCPCS: 70450; 70496; 70498; 70551; 71045; 80053; 80061; 82805; 82962; 83036; 84484; 85025; 85027; 85610; 85730; 92610; 93005; 93306; 97162; 97167; 99291; J3101; Q9967

== ENCOUNTER 2024-11-08 06:35 | Outpatient (RCR) | payer BC, SELFPAY | END 2024-11-08 23:59 | disposition home or self-care (01) | LOC: ROT 06:35 | PROVIDERS: ATTENDING PHYSICIAN Internal Medicine | DX: I69.351 Hemiplegia and hemiparesis following cerebral infarction affecting right dominant side (principal); I69.312 Visuospatial deficit and spatial neglect following cerebral infarction; Z73.6 Limitation of activities due to disability | CPT/HCPCS: 97110; 97112; 97167; 97530; 97537 ==